=== PATIENT | female | born 2005 | race Two or more races ===

== ENCOUNTER 2023-08-07 09:51 | Observation (INO) | payer MEDICAID, OTHER ==
[2023-08-07] MEDS ORDERED: PREN-96 PO (10:34)
== END 2023-08-07 10:49 | disposition home or self-care (01) ==
LOC: LDRP 09:51
PROVIDERS: ADMIT Obstetrics & Gynecology; ATTEND Obstetrics & Gynecology
DX: O26.893 Other specified pregnancy related conditions, third trimester (principal); N89.8 Other specified noninflammatory disorders of vagina; R10.2 Pelvic and perineal pain; Z3A.38 38 weeks gestation of pregnancy
CPT/HCPCS: 59025; 81002; 94760; G0378

== ENCOUNTER 2023-08-22 08:34 | Observation (INO) | payer MEDICAID ==
[~2023-08-22] VITALS: Ht 154.9 cm; Wt 60.8 kg
[~2023-08-22 08:34] MED LIST: PREN-96 PO
== END 2023-08-23 19:22 | disposition home or self-care (01) ==
LOC: LDRP 08-23 16:30
PROVIDERS: ADMIT Obstetrics & Gynecology; ATTEND Obstetrics & Gynecology
DX: O48.0 Post-term pregnancy (principal); O42.92 Full-term premature rupture of membranes, unspecified as to length of time between rupture and onset of labor; Z3A.40 40 weeks gestation of pregnancy
CPT/HCPCS: 59025; 76818; 81002; 94760; G0378

== ENCOUNTER 2023-08-25 00:17 | Inpatient (IN) | payer MEDICAID ==
[~2023-08-25] VITALS: Ht 154.9 cm; Wt 60.8 kg
[2023-08-25] MEDS ORDERED: BUTORPHANOL TARTRATE 2 MG/1 ML VIAL IV PRN (00:45)
[2023-08-25 01:07] LABS: Urine Bacteria None Seen /hpf (None Seen)
[2023-08-25 01:13] LABS: Basophils # (auto) 0.1 10 ^3/uL (0-0.2); Basophils % (auto) 0.6 % (0.0-2.0); Eosinophils # (auto) 0.1 10 ^3/uL (0-0.8); Eosinophils % (auto) 0.7 % (0.0-7.0); Hematocrit 38.7 % (36.0-46.0); Hemoglobin 12.6 g/dL (12.2-16.2); Lymphocytes # (auto) 3.2 10 ^3/uL (0.4-5.4); Lymphocytes % (auto) 25.1 % (10.0-50.0); Mean Corpuscular Hemoglobin 29.2 pg (28.0-32.0); Mean Corpuscular Hgb Conc. 32.6 g/dL (32.0-36.0); Mean Corpuscular Volume 89.7 fL (80.0-100.0); Monocytes # (auto) 0.7 10 ^3/uL (0-1.3); Monocytes % (auto) 5.6 % (0.0-12.0); Neutrophils # (auto) 8.6 10 ^3/uL (1.6-8.6); Nucleated Red Blood Cells % 0.1 %; Red Blood Cells 4.32 10^6/uL (4.0-5.20); Red Cell Distribution Width 14.2 % (11.8-14.3); White Blood Cell 12.6 10^3/uL (4.4-10.8)
[2023-08-25 01:16] LABS: Urine Blood 2+ /uL (Negative); Urine Clarity Clear (Clear); Urine Color Light-Yellow (Yellow); Urine Mucus FEW (None Seen); Urine Protein, UAD Negative (Negative); Urine Specific Gravity 1.013 (1.001-1.035); Urine Urobilinogen Normal (Negative); Urine WBC 30 /hpf (0 - 5)
[2023-08-25 01:29] LABS: Alanine Aminotransferase < 9 U/L (7-40); Albumin 3.9 g/dL (3.2-4.8); Alkaline Phosphatase 313 U/L (46-116); Anion Gap 9 (5-15); Aspartate Aminotransferase 25 U/L (13-40); BUN/Creatinine Ratio 8.1 (10.0-20.0); Bilirubin, Total 1.1 mg/dL (0.2-1.0); Blood Urea Nitrogen 5 mg/dL (9-23); Carbon Dioxide 21 mmol/L (20-30); Chloride 105 mmol/L (98-107); Glucose 86 mg/dL (74-106); Potassium 3.6 mmol/L (3.5-5.1); Sodium 135 mmol/L (136-145); Total Protein 6.7 g/dL (5.7-8.2)
[2023-08-25 01:30] LABS: INR 0.92 (0.9-1.15); Partial Thromboplastin Time 28.2 SEC (24.5-34.5); Prothrombin Time 9.8 sec (9.3-11.8)
[2023-08-25] MEDS: DERMOPLAST 60ML BOTTLE TOP PRN (01:53)
[2023-08-25] MEDS: WITCH HAZEL-GLYCERIN PAD TOP PRN (01:53)
[2023-08-25] MEDS: PHISODERM TOP SOLN 240ML BTL TOP PRN (01:54)
[2023-08-25] MEDS: BUTORPHANOL TARTRATE 2 MG/1 ML VIAL IV PRN (01:56)
[2023-08-25 01:58] LABS: Amphetamine Screen, Urine Neg (NEGATIVE); Barbiturate Scree,Urine Neg (NEGATIVE); Benzodiazephine Screen, Urine Neg (NEGATIVE); Cocaine Screen, Urine Neg (NEGATIVE)
[2023-08-25 01:59] LABS: Cannabinoid Screen, Urine Neg (NEGATIVE); Opiate Scree,Urine Neg (NEGATIVE); Phencyclidine Screen, Urine Neg (NEGATIVE)
[2023-08-25] MEDS ORDERED: MINERAL OIL TOPICAL 10ml TOP ONE (02:00)
[2023-08-25] MEDS: ONDANSETRON HCL 4 MG/2 ML VIAL IV PRN (02:08)
[2023-08-25] MEDS: LACTATED RINGER'S 1,000 ML IV SCH (02:09)
[2023-08-25] MEDS: fentaNYL CITRATE 100 MCG/2 ML VL IV ONE (04:56)
[2023-08-25] MEDS ORDERED: ONDANSETRON HCL 4 MG/2 ML VIAL IV PRN (05:30)
[2023-08-25] MEDS ORDERED: fentaNYL CITRATE 100 MCG/2 ML VL IV PRN (06:00)
[2023-08-25] MEDS ORDERED: ePHEDrine SULFATE 50 MG/ML AMP IV ONE (07:00)
[2023-08-25] MEDS ORDERED: NALOXONE HCL 0.4 MG/ML VIAL IV ONE (07:00)
[2023-08-25] MEDS ORDERED: ePHEDrine SULFATE 50 MG/ML AMP ONE (07:00)
[2023-08-25] MEDS ORDERED: LACTATED RINGER'S 1,000 ML IV ONE (07:00)
[2023-08-25] MEDS: ROPIVACAINE HCL 200 ML ONE (07:24)
[2023-08-25] MEDS: LACT. RINGERS/OXYTOCIN 20UNITS 1,000 ML IV SCH (12:52)
[2023-08-25] MEDS ORDERED: LIDOCAINE 2%HCL (LOCAL ANESTH.) INJ 20ML MDV ONE (16:07)
[2023-08-25] MEDS: LACT. RINGERS/OXYTOCIN 20UNITS 500 ML IV ONE ×2 (16:41→16:42)
[2023-08-25] MEDS: LIDOCAINE 2%HCL (LOCAL ANESTH.) INJ 20ML MDV IJ PRN (16:41)
[2023-08-25] MEDS: METHYLERGONOVINE MALEATE 0.2 MG/ML AMP IM ONE (16:44)
[2023-08-25] MEDS ORDERED: ACETAMINOPHEN 325 MG TAB PO PRN (17:15)
[2023-08-25] MEDS ORDERED: ONDANSETRON ODT 4 MG TAB PO PRN (17:15)
[2023-08-25] MEDS: IBUPROFEN 600 MG TAB PO PRN (17:37)
[2023-08-25 19:00] VITALS: BP 141/69; PULSE 55; RESP 18; TEMP 97.5; O2SAT 100
[2023-08-25] MEDS: ceFAZolin 1GM/50ML 50 ML IV SCH (19:09)
[2023-08-25 23:15] VITALS: BP 136/71; PULSE 61; RESP 16; TEMP 98; O2SAT 99
[2023-08-26] MEDS: DOCUSATE SOD 100 MG CAP PO SCH (02:03)
[2023-08-26 03:00] VITALS: BP 101/66; PULSE 74; RESP 16; TEMP 97.9; O2SAT 96
[2023-08-26] MEDS: ceFAZolin 1GM/50ML 50 ML IV SCH ×2 (03:05→11:09)
[2023-08-26 07:00] VITALS: BP 104/60; PULSE 67; RESP 16; TEMP 97.7; O2SAT 97
[2023-08-26 08:06] LABS: RPR Non Reactive (Non Reactive)
[2023-08-26 11:20] VITALS: BP 93/50; PULSE 64; RESP 14; TEMP 97.8; O2SAT 97
[2023-08-26 15:00] VITALS: BP 105/56; PULSE 70; RESP 16; TEMP 97.7; O2SAT 96
[2023-08-26] MEDS ORDERED: IBU600T PO (15:43)
[2023-08-26 18:32] VITALS: BP 105/56; PULSE 70; RESP 16; TEMP 97.7; O2SAT 96
[2023-08-29 19:06] LABS: Treponema pallidum Ab (FTA-Ab) Non Reactive (Non Reactive)
== END 2023-08-26 18:28 | disposition home or self-care (01) | DRG 542 ==
LOC: LDRP 00:17 → OBSVTOIN 00:36 → LDRP 03:26
PROVIDERS: ADMIT Obstetrics & Gynecology; ATTEND Obstetrics & Gynecology
PROC: 10E0XZZ Delivery of Products of Conception, External Approach (ICD-10-PCS; principal; 2023-08-25)
PROC: 0TQDXZZ Repair Urethra, External Approach (ICD-10-PCS; 2023-08-25)
PROC: 0KQM0ZZ Repair Perineum Muscle, Open Approach (ICD-10-PCS; 2023-08-25)
PROC: 3E0R3BZ Introduction of Anesthetic Agent into Spinal Canal, Percutaneous Approach (ICD-10-PCS; 2023-08-25)
PROC: 00HU33Z Insertion of Infusion Device into Spinal Canal, Percutaneous Approach (ICD-10-PCS; 2023-08-25)
DX: O48.0 Post-term pregnancy (principal); Z37.0 Single live birth; O70.1 Second degree perineal laceration during delivery; Z3A.40 40 weeks gestation of pregnancy; O71.82 Other specified trauma to perineum and vulva
CPT/HCPCS: 36415; 59025; 59409; 62282; 80053; 80307; 81001; 85025; 85610; 85730; 86592; 86803; 86850; 86900; 86901; 94760; 94762; 96360; 96361; 96365; 96366; 96372; 96374; 96375; G0378; J2405; J2590